=== PATIENT | male | born 1945 | race Caucasian/White ===

== ENCOUNTER 2018-03-06 04:54 | Emergency (ER) | payer MEDICARE ==
[~2018-03-06] VITALS: Ht 177.8 cm; Wt 95.0 kg
[2018-03-06 05:01] VITALS: BP 138/69; PULSE 77; RESP 16; TEMP 97.5; O2SAT 98
--- NOTE | 2018-03-06 05:34 | PD ---
HPI Chief Complaint: Fall Time Seen by Provider: 05:29 Travel History International Travel<30 days: No Contact w/Intl Traveler<30days: No Traveled to known affect area: No History of Present Illness HPI 73-year-old male with history of Parkinson's disease, stage IV prostate cancer currently being observed by his oncologist, status post previous chemotherapy, walks with a walker, presents to the ER today brought in by his because he was going to the bathroom and lost his balance and fell backward hitting his head and shoulder area. He denies any loss of consciousness. He states that when he was trying to get up off the floor, he was a bit lightheaded although this is not unusual for him. He denies any current chest pains, trouble breathing, fevers, headaches, nausea, vomiting, or other symptoms. Modifying Factors: None Associated Signs & Symptoms: Fall, minor head injury, shoulder injury Risk Factors: Elderly PFSH Past Medical History Depression: Yes Cancer: Yes (stage 4 prostate CA, and unknown site) Diminished Hearing: No GERD: Yes Neurologic: Yes (IOH (bp drops with orthostatics)) Parkinson's Disease: Yes (robbie body dementia parkinsonism) Sleep Apnea: Yes Tetanus Vaccination: Unknown Influenza Vaccination: Yes Past Surgical History Appendectomy: Yes Other Surgery: Yes (partial thyroidectomy, entersectomy, port a cath ) Social History Alcohol Use: Yes (drink a night) Tobacco Use: No Substance Use: No Allergies-Medications (Allergen,Severity, Reaction): Coded Allergies: azithromycin (Verified Allergy, Severe, 03/06/18) severe diarrhea Review of Systems Except as stated in HPI: all other systems reviewed are Neg Physical Exam Narrative GENERAL: Well-developed elderly white male patient currently and mild distress. Awake and oriented 3. He is somewhat hard of hearing. SKIN: Focused skin assessment warm/dry. HEAD: Atraumatic. Normocephalic. EYES: Pupils equal and round. No scleral icterus. No injection or drainage. ENT: No nasal bleeding or discharge. Mucous membranes pink and moist. NECK: Trachea midline. No JVD. No midline C-spine tenderness or step-offs. CARDIOVASCULAR: Regular rate and rhythm. No murmur appreciated. RESPIRATORY: No accessory muscle use. Clear to auscultation. Breath sounds equal bilaterally. GASTROINTESTINAL: Abdomen soft, non-tender, nondistended. Hepatic and splenic margins not palpable. MUSCULOSKELETAL: No obvious deformities. No clubbing. No cyanosis. No edema. Right shoulder: There is an abrasion over the posterior right shoulder, mildly tender to palpation. No bony tenderness. Nontender to range of motion of the shoulder. NEUROLOGICAL: Awake and alert. No obvious cranial nerve deficits. Motor grossly within normal limits. Normal speech. PSYCHIATRIC: Appropriate mood and affect; insight and judgment normal. Data Data Last Documented VS Vital Signs Date Time Temp Pulse Resp B/P (MAP) Pulse Ox O2 Delivery O2 Flow Rate FiO2 03/06/18 05:01 97.5 77 16 138/69 (92) [address] Brain W/O Iv Contrast(Rout) (03/06/18 05:29) Shoulder, Limited(2vws) (03/06/18 05:29) Orthostatic Vital Signs (03/06/18 05:29) MDM Medical Decision Making Medical Screen Exam Complete: Yes Emergency Medical Condition: Yes Medical Record Reviewed: Yes Differential Diagnosis Shoulder contusion versus fracture, head contusion versus intracranial injuries Narrative Course X-ray of the shoulder does not show any signs of acute injuries. CT of the brain was ordered for further evaluation as well. Physician Communication Physician Communication Case is signed out at [address] Paula pending CAT scan of the head. Diagnosis Primary Impression: Fall Condition: Stable Edmund Carrington MD March 06, 2018 05:34
--- NOTE | 2018-03-06 06:52 | RADRPT ---
EXAM DATE/TIME: 03/06/2018 05:51 [facility] COMPARISON: No previous studies available for comparison. INDICATIONS : Patient states right shoulder pain post fall. MEDICAL HISTORY : Carcinoma, prostatic. SURGICAL HISTORY : Port placement. ENCOUNTER: Initial ACUITY: 1 day PAIN SCORE: 3/10 LOCATION: Right proximal shoulder. FINDINGS: Two view examination of the right shoulder demonstrates no evidence of fracture or dislocation. The glenohumeral and acromioclavicular joints are maintained. Bony mineralization is normal. Some calcif ic density superior to the humerus may resent an element of calcific tendinopathy. Right IJ Infuse-a- Port catheter with the tip projecting over the central venous system. CONCLUSION: 1. No fracture. 2. Possible mild calcific tendinopathy Momo Chau MD on March 06, 2018 at 6:50 Board Certified Radiologist. This report was verified electronically.
[2018-03-06 06:57] VITALS: BP_SYST 118; BP_SYST 150; BP_DIAS 55; BP_DIAS 56; BP_DIAS 97; RESP 16
--- NOTE | 2018-03-06 06:59 | PD ---
Physical Exam Date Seen by Provider: March 06, 2018 Time Seen by Provider: 06:57 Narrative The patient is a 73-year-old male was initially evaluated by the previous physician. Please refer to the initial history, physical, diagnostic evaluation , treatment modality plan. Data Data Last Documented VS Vital Signs Date Time Temp Pulse Resp B/P (MAP) Pulse Ox O2 Delivery O2 Flow Rate FiO2 03/06/18 07:29 63 16 140/65 (90) 98 Room Air 03/06/18 05:[address] Brain W/O Iv Contrast(Rout) (03/06/18 05:29) Shoulder, Limited(2vws) (03/06/18 05:29) Orthostatic Vital Signs (03/06/18 05:29) Ed Discharge Order (03/06/18 08:15) [facility] Medical Record Reviewed: Yes Supervised Visit with ROBERTO: No Interpretation(s) Last Impressions Shoulder X-Ray 03/06/18528 Signed Impressions: Service Date/Time: Tuesday, March 06, 2018 05:51 - CONCLUSION: 1. No fracture. 2. Possible mild calcific tendinopathy Momo Chau MD CT of the head without contrast reveals no acute disease. Differential Diagnosis Differential diagnosis includes closed head injury, intracranial hemorrhage, skull fracture, contusion, hematoma, fracture, mechanical fall, syncope, orthostatic hypotension. Narrative Course The patient is a 73-year-old male was initially evaluated by the previous physician. Please refer to the initial history, physical, diagnostic evaluation , and treatment modality plan. The patient was signed out at [address] of the brain pending. Orthostatic vital signs did reveal a 32 point drop in systolic when going from supine to sitting and standing, however, the patient's heart rate was stable with no complaints of dizziness. X-ray of the shoulder was unremarkable. CT of the brain reveals no acute disease. The patient was reassessed, he normally walks with a walker, he is able to fully abduct and extend the upper extremities as well as flex the hips and knees bilaterally. Patient's is at bedside. He is stable for outpatient follow-up. He will be provided a copy of his x-ray results and CT results at discharge. Diagnosis Primary Impression: Fall Qualified Codes: W19.XXXA - Unspecified fall, initial encounter Additional Impression: Closed head injury Qualified Codes: S09.90XA - Unspecified injury of head, initial encounter Patient Instructions: General Instructions Additional Instruction: Please provide the patient a copy of his x-ray results and CT results at discharge. Follow-up with your primary physician. Return if symptoms worsen or progress. Disposition: 01 DISCHARGE HOME Condition: Stable Hansel Paula MD March 06, 2018 06:59
[2018-03-06 07:29] VITALS: BP 140/65; PULSE 63; RESP 16; O2SAT 98
--- NOTE | 2018-03-06 07:42 | RADRPT ---
EXAM DATE/TIME: 03/06/2018 07:10 [facility] COMPARISON: No previous studies available for comparison. INDICATIONS : Trauma, fall. Hit head. RADIATION DOSE: 46.51 CTDIvol (mGy) MEDICAL HISTORY : Parkinson's. Carcinoma, prostate. SURGICAL HISTORY : None. ENCOUNTER: Initial ACUITY: 1 day PAIN SCALE: 0/10 LOCATION: cranial TECHNIQUE: Multiple contiguous axial images were obtained of the head. Using automated exposure control and adj ustment of the mA and/or kV according to patient size, radiation dose was kept as low as reasonably a chievable to obtain optimal diagnostic quality images. DICOM format image data is available electro nically for review and comparison. FINDINGS: CEREBRUM: The ventricles are normal for age. No evidence of midline shift, mass lesion, hemorrhage or acute in farction. No extra-axial fluid collections are seen. POSTERIOR FOSSA: The cerebellum and brainstem are intact. The 4th ventricle is midline. The cerebellopontine angle i s unremarkable. EXTRACRANIAL: The visualized portion of the orbits is intact. SKULL: The calvaria is intact. No evidence of skull fracture. CONCLUSION: No acute disease. Trevor Thompson MD on March 06, 2018 at 7:40 Board Certified Radiologist. This report was verified electronically.
== END 2018-03-06 08:28 | disposition home or self-care (01) ==
LOC: NEPC 04:54
DX: S09.90XA Unspecified injury of head, initial encounter (principal); M25.511 Pain in right shoulder; G20 Parkinson's disease; F02.80 Dementia in other diseases classified elsewhere, unspecified severity, without behavioral disturbance, psychotic disturbance, mood disturbance, and anxiety; W01.0XXA Fall on same level from slipping, tripping and stumbling without subsequent striking against object, initial encounter; Z85.46 Personal history of malignant neoplasm of prostate
CPT/HCPCS: 70450; 73030